=== PATIENT | male | born 2005 | race Two or more races ===

== ENCOUNTER 2024-09-13 09:35 | Day surgery (SDC) | payer MEDICAID, SELFPAY ==
--- NOTE | 2024-09-09 09:27 | ESHP_ITS ---
RE: NATALY ADDISON : 2005 DATE OF ADMISSION: 09/08/2024 HISTORY OF PRESENT ILLNESS: The patient has right spermatocele. He is scheduled to have right-sided spermatocelectomy. The patient has a cyst in his scrotum for about 4 months. Previous surgeries none. He has no children. No history of diabetes mellitus. No history of hypertension. ALLERGIES: NONE KNOWN. MEDICATIONS: None. CLINICAL EXAMINATION: HEENT: Normal. NECK: Supple. LUNGS: Clear. CARDIOVASCULAR: Heart sounds are normal. ABDOMEN: Soft without any organomegaly. No guarding. No rigidity. EXTREMITIES: Normal. GENITOURINARY: Phallus is normal. Testes are down in scrotum. The patient does have right-sided 2-3 cm spermatocele. The patient wishes to have it removed because it is bothering him. PLAN: Right spermatocelectomy. Planned procedure, risks and complications have been discussed with the patient. The patient has understood them and agreed to proceed. DT: 12:37:51 TT: 15:42:00 Ref: [id number] - TID: [id number]
[2024-09-09 10:58] VITALS: BMI 28.2
[2024-09-09 12:20] LABS: Basophils % (Auto) 1 % (0-2.5); Eosinophils % (Auto) 1 % (0-10); Hematocrit 45.9 % (41.0-53.0); Hemoglobin 16.2 g/dL (13.5-16.0); Immature Granulocytes % (Auto) 0 % (0-0); Immature Granulocytes Auto 0.01 Thou/mm3 (0.00-0.00); Lymphocytes # (Auto) 2.4 Thou/mm3 (1.0-5.0); Lymphocytes % (Auto) 36 % (10-50); Mean Corpuscular HGB Conc 35.3 g/dl (31.0-37.0); Mean Corpuscular Hemoglobin 29.3 pg (25.0-35.0); Mean Corpuscular Volume 83 fL (80-100); Monocytes # (Auto) 0.5 Thou/mm3 (0.0-0.8); Monocytes % (Auto) 7 % (0-12); Neutrophils # (Auto) 3.8 Thou/mm3 (1.8-7.7); Neutrophils % (Auto) 56 % (37-80); Nucleated Red Blood Cell % 0 /100 WBC (0); Platelet Count 243 Thou/mm3 (140-440); RDW Standard Deviation 37.9 fL (35.1-43.9); Red Blood Count 5.52 Miln/mm3 (4.50-5.90); White Blood Count 6.8 Thou/mm3 (4.5-11.0)
[2024-09-09 12:28] LABS: Anion Gap 8 (7-16); BUN/Creatinine Ratio 11 Ratio (12-20); Blood Urea Nitrogen 12 mg/dL (9-23); Calcium 10.4 mg/dL (8.3-10.6); Carbon Dioxide 29.1 mMol/L (20.0-31.0); Chloride 105 mMol/L (98-107); Creatinine (Component) 1.1 mg/dL (0.6-1.3); Glucose 102 mg/dL (74-106); Osmolality,Calculated 282 (275-295); Potassium 4.3 mMol/L (3.4-5.1); Sodium 142 mMol/L (136-145); eGFR > 60 See Note
[2024-09-13] VITALS (8 sets, daily range): BP systolic 93–117; BP diastolic 51–92; PULSE 56–80; RESP 14–17; TEMP 36.1–36.4; O2SAT 98–100; BMI 28.4
[2024-09-13] MEDS: RINGERS LACTATED 1000 ML 1,000 ML 20 ML IV (10:06)
--- NOTE | 2024-09-13 12:46 | SUR.PHASEI ---
1246 Patient arrived resting comfortably in [facility], on oxygen 8L via oxy mask with an oral airway in place, breathing unlabored, vital signs stable, dressing intact to groin area; sutures, gauze, fluffs, scrotal support, no bleeding noted, lung sounds clear upon auscultation, bilateral radial pulses present when palpated, report received from Paresh GUERRERO and Mylene ONEIL/ Jovita SRNA
--- NOTE | 2024-09-13 14:04 | SUR.PHASEII ---
1404 Patient meets discharge criteria from recovery, awake and alert, breathing unlabored, vital signs stable, denies pain, dressing intact; no bleeding noted, patient assisted with dressing into his clothing by this comic book writer, patient ate two jello and drinking apple juice, tolerating well, denies nausea, discharge instructions given to patient and patients brother, brother signed discharge instructions. Patient given all his belongings prior to discharge, transported via wheelchair and left in a private vehicle.
--- NOTE | 2024-09-13 16:28 | ESOP_ITS ---
RE: NATALY ADDISON : 2005 DATE OF OPERATION: 09/13/2024 PREOPERATIVE DIAGNOSES: Right epididymal cyst and spermatocele. POSTOPERATIVE DIAGNOSES: Right epididymal cyst and spermatocele with prominent appendix of the left testicular appendix. PROCEDURES PERFORMED: Excision of the left spermatocele and excision and fulguration of the prominent appendix of the left testis. ANESTHESIA: General. INDICATION: The patient is a 18-year-old male, who was seen in the office. He has a right-sided scrotal swelling of about 2 cm in size above the right testis that has been bothering him. The patient was seen in the office. Because of his symptoms, he is now scheduled to have right spermatocelectomy. Planned procedure, risks and complications have been discussed with patient. The patient understood them and agreed to proceed. DESCRIPTION OF PROCEDURE: After the patient was brought to the operating table under adequate general anesthesia in supine position, parts were prepped and draped in the usual fashion. Right vertical scrotal incision was then made approximately about 3 cm long. Skin and subcutaneous tissues were incised. The right testis was delivered out of the incision. The patient had a prominent appendix of the right testis and had right spermatocele or epididymal cyst above the right testis, which was about 2 cm long. This was carefully excised and was sent for examination. The prominent appendix of the right testis was excised and fulgurated. Complete hemostasis was obtained. The testis was put back into the right-sided hemiscrotum and the wound was closed in layers using 3-0 chromic catgut sutures. Local anesthetic was injected at the site of the incision. Sterile dressing was then applied. The patient was then transferred to the recovery room in a satisfactory condition having tolerated the entire procedure well. Sponge count and needle count at the end of the procedure was found to be correct. Estimated blood loss was approximately 2-3 mL. DT: 12:52:58 TT: 16:27:00 Ref: [id number] - TID: [id number]
== END 2024-09-13 14:04 | disposition home or self-care (01) ==
PROVIDERS: PCP Family Medicine; Referring Provider Surgery; Visit Provider Surgery
PROC: (CPT 54840; principal; 2024-09-13 11:45)
DX: N43.41 Spermatocele of epididymis, single (principal); N50.3 Cyst of epididymis
CPT/HCPCS: 54840; 36415; 80048; 85025; A4217; A4649; J0131; J0690; J1100; J1885; J2250; J2405; J2704; J3010; J3490; J7120; J0665

== ENCOUNTER 2024-09-16 17:03 | Emergency (ER) | payer MEDICAID, SELFPAY ==
[2024-09-16 17:05] VITALS: BMI 28.2
[2024-09-16 17:37] VITALS: BP 107/76; PULSE 94; RESP 18; TEMP 37.8; O2SAT 99
--- NOTE | 2024-09-16 17:42 | PD.EDRME ---
Rapid Medical Screening Exam RME Arrival date/time: 09/16/24 17:03 This is a 18-year-old male presents emergency department complaints of a headache, fever recently had a testicular mass surgery 3 days ago. I have greeted and performed a focused initial assessment of this patient. Initial appropriate labs ordered at this time. A comprehensive ED assessment and evaluation of the patient and analysis of all test and completion of medical decision making process will be conducted by additional ED provider. Chief Complaint: Flu Like Symptoms Time Seen by Provider: 09/16/24 17:41 Vital signs: Vital Signs Temperature 100.1 F 09/16/24 17:37 Pulse Rate 94 09/16/24 17:37 Respiratory Rate 18 09/16/24 17:37 Blood Pressure 107/76 09/16/24 17:37 Pulse Oximetry (%) 99 09/16/24 17:37 Oxygen Delivery Method Room Air 09/16/24 17:37
[2024-09-16 18:11] LABS: Collection Type, Urine Clean Catch
[2024-09-16 18:12] LABS: Lactate (Lactic Acid) 1.3 mMol/L (0.4-2.0)
[2024-09-16 18:23] LABS: Basophils # (Auto) 0.1 Thou/mm3 (0.0-0.2); Basophils % (Auto) 1 % (0-2.5); Eosinophils % (Auto) 0 % (0-10); Hematocrit 45.4 % (41.0-53.0); Hemoglobin 16.2 g/dL (13.5-16.0); Immature Granulocytes % (Auto) 0 % (0-0); Immature Granulocytes Auto 0.04 Thou/mm3 (0.00-0.00); Lymphocytes # (Auto) 1.5 Thou/mm3 (1.0-5.0); Lymphocytes % (Auto) 16 % (10-50); Mean Corpuscular HGB Conc 35.7 g/dl (31.0-37.0); Mean Corpuscular Hemoglobin 29.8 pg (25.0-35.0); Mean Corpuscular Volume 84 fL (80-100); Monocytes # (Auto) 0.6 Thou/mm3 (0.0-0.8); Monocytes % (Auto) 6 % (0-12); Neutrophils # (Auto) 7.7 Thou/mm3 (1.8-7.7); Neutrophils % (Auto) 78 % (37-80); Nucleated Red Blood Cell % 0 /100 WBC (0); Platelet Count 211 Thou/mm3 (140-440); RDW Standard Deviation 37.3 fL (35.1-43.9); Red Blood Count 5.44 Miln/mm3 (4.50-5.90); White Blood Count 9.9 Thou/mm3 (4.5-11.0)
[2024-09-16 18:29] LABS: Bilirubin,Urine Negative (Negative); Blood,Urine Negative (Negative); Clarity,Urine Clear (Clear/Hazy); Color,Urine Lt-Yellow (Lt Yel-Yel); Glucose, Urine Negative (Negative); Ketones,Urine 2+ (Negative); Leukocyte Esterase,Urine Negative (Negative); Nitrite,Urine Negative (Negative); Protein,Urine Trace (Neg - Trace); RBC,Urine 1 /hpf (0-3); Specific Gravity,Urine 1.023 (1.001-1.035); Squamous Epithelial Cell,Urine < 1 /hpf (0-5); WBC,Urine < 1 /hpf (0-5)
[2024-09-16 18:40] LABS: Carbon Dioxide 28.5 mMol/L (20.0-31.0); Chloride 100 mMol/L (98-107); Sodium 141 mMol/L (136-145)
[2024-09-16 18:41] LABS: Alanine Aminotransferase 14 U/L (10-49); Albumin/Globulin Ratio 1.8 (1.2-2.2); Alkaline Phosphatase 80 U/L (46-116); Anion Gap 13 (7-16); Aspartate Amino Transferase 13 U/L (0-34); BUN/Creatinine Ratio 12 Ratio (12-20); Bilirubin,Total 0.7 mg/dL (0.3-1.2); Blood Urea Nitrogen 12 mg/dL (9-23); Calcium 10.3 mg/dL (8.3-10.6); Calcium (Corrected) 10.3 mg/dL (8.5-10.1); Estimated Creatinine Clearance 117.7 mL/min (>60); Globulin 2.8 gm/dL (2.3-3.5); Glucose 97 mg/dL (74-106); Lipase 34 U/L (12-53); Osmolality,Calculated 280 (275-295); Total Protein 7.8 gm/dL (5.7-8.2); eGFR > 60 See Note
[2024-09-16 18:43] LABS: Procalcitonin < 0.04 ng/ml (0.0-0.49)
[2024-09-16 21:29] VITALS: BP 117/79; PULSE 73; RESP 18; TEMP 37.1; O2SAT 95
--- NOTE | 2024-09-16 21:30 | PC.NURSE ---
Ambulated to RM #7 with c/o headache, N/V, mild fever. Recently had surgery in rt testicle to remove a mass per pt. Denies any redness or drainage from surgical site. Mom at bedside.
[2024-09-16 21:40] VITALS: BP 113/76; RESP 20; TEMP 37.3; O2SAT 100
--- NOTE | 2024-09-16 21:43 | EDNOTE_ITS ---
<Statement entered by Lisa Marina MD - 09/17/24 18:36> As co-signing physician, I was present and available for consult prn. I concur with the plan and care as documented by the midlevel provider. ED General RME/HPI General Chief complaint: Flu Like Symptoms Stated complaint: VOMITING, COUGH, LETHARGY Time Seen by Provider: 09/16/24 17:41 Arrival date/time: 09/16/24 17:03 RME / HPI RME / HPI narrative: 18-year-old male patient was brought in by family for evaluation regarding headache and fever. Onset of symptoms since early today patient woke up with headache, fever, nausea, vomiting, cannot take anything down. Patient had a testicular mass removal surgery by Dr. Lou 3 days ago. Patient denies any cough denies any abdominal pain denies any testicular pain. Denies any other complaints no medications taken prior to arrival. Related Data Previous Rx's ?Medication ?Instructions ?Recorded ciprofloxacin HCl 500 mg tablet 500 mg PO BID #14 tabs 09/13/24 (Cipro) hydrocodone 5 mg-acetaminophen 325 1 tab PO Q6H PRN pa in #30 tabs 09/13/24 mg tablet Allergies Allergy/AdvReac Type Severity Reaction Status Date / Time No Known Allergies Allergy Verified 09/16/24 17:08 Review of Systems Review of Systems Narrative Review of Systems: Review of system reviewed and within normal limits except mentioned in HPI ED Exam Narrative Physical exam: VITAL SIGNS: Reviewed. GENERAL APPEARANCE: Alert and interactive, follows commands, no acute distress, HEAD AND FACE: Non-traumatic. ENT: PERRL, pink conjunctivitis, eyelid no trauma, Mucous membrane moist. NECK: Supple, nontender, no nuchal rigidity. CHEST: No tenderness, no crepitus, no paradoxical movement, no retractions. LUNGS: Clear, well ventilated, symmetric, no rales, no wheezing, no ronchi, no stridor, good breath sounds bilaterally. HEART: Regular rate, regular rhythm, no murmur, no gallops. ABDOMEN: Soft, positive bowel sounds, nondistended, no guarding, nontender, no rebound, no masses, RECTAL: Deferred. GENITAL: Surgical wound well coaptated with sutures, testicle, no swelling no drainage no bleeding no redness nontender NEUROLOGICAL: Gross motor function intact sensory function intact, Appropriate for age. MUSCULOSKELETAL: low back nontender, full range of motion. EXTREMITIES: Nontender, full range of motion. SKIN: Color pink, dry, no rash, no lacerations, no abrasions, no contusions. LYMPHATICS: Deferred. Course Quality Measures none Orders Category Date Time Status Bedside Influenza A&B Antigen Test NOW Care 09/16/24 17:42 Completed IV [Insert IV] NOW Care 09/16/24 21:56 Active Blood Culture (Lab) Stat Lab 09/16/24 17:56 Received CBC Stat Lab 09/16/24 17:50 Completed Comprehensive Metabolic Panel Stat Lab 09/16/24 17:50 Completed Lactic Acid [Lactate (Lactic Acid)] Stat Lab 09/16/24 17:50 Completed Lipase Stat Lab 09/16/24 17:50 Completed Procalcitonin Stat Lab 09/16/24 17:50 Completed Urinalysis Stat Lab 09/16/24 18:00 Completed Famotidine Inj [Pepcid Inj] Med 09/16/24 21:40 Discontinued 20 mg IVP X1 ONE Ketorolac Inj [Toradol Inj] Med 09/16/24 21:40 Discontinued 30 mg IVP X1 ONE Ondansetron Inj [Zofran Inj] Med 09/16/24 21:40 Discontinued 4 mg IV X1 ONE Sodium Chloride 0.9% 1000 ml [Ns] 1,000 ml Med 09/16/24 21:42 Discontinued IV 999 mls/hr Vital Signs Vital signs: Vital Signs Temperature 100.1 F 09/16/24 17:37 Pulse Rate 94 09/16/24 17:37 Respiratory Rate 18 09/16/24 17:37 Blood Pressure 107/76 09/16/24 17:37 Pulse Oximetry (%) 99 09/16/24 17:37 Oxygen Delivery Method Room Air 09/16/24 17:37 [facility] Patient data External records reviewed:: None Clinical information provided by:: none Social determinants that could affect healthcare access:: none Patient has the following chronic illnesses:: None How is presenting disease/condition affected by chronic disease/condition?: no chronic disease Evaluation data The following diagnostics were reviewed and interpreted by me:: lab results Lab and/or radiology exams considered but not ordered:: None Interpretation Summary: See results in the MDM Medications Medications considered but not ordered:: None Medication administrations:: Medication Administration History Discontinued Medications Famotidine (Famotidine Inj 10 Mg/Ml Vial 2 Ml) 20 mg IVP X1 ONE Stop: 09/16/24 21:41 Last Admin: 09/16/24 22:07 Dose: 20 mg Documented By: GET Sodium Chloride (Ns) 1,000 mls @ 999 mls/hr IV .Q1H1M ONE Stop: 09/16/24 22:42 Last Admin: 09/16/24 22:01 Dose: 999 mls/hr Documented By: GET Ketorolac Tromethamine (Ketorolac Inj 30 Mg/Ml Vial) 30 mg IVP X1 ONE Stop: 09/16/24 21:41 Last Admin: 09/16/24 22:03 Dose: 30 mg Documented By: GET Ondansetron HCl (Ondansetron Inj 2 Mg/Ml Inj 2 Ml) 4 mg IV X1 ONE; Protocol Stop: 09/16/24 21:41 Last Admin: 09/16/24 22:05 Dose: 4 mg Documented By: GET Toradol Zofran IV fluids and Pepcid Consultations Consultation(s) initiated? (list below): No Diagnosis Differential Diagnosis ED Complaint MDM: Fever, URI, cough Most likely diagnosis given after review of the tests above:: Fever, Admission Indicated Admission indicated?: not indicated Explain why admission is indicated or not indicated:: Stable Admission Request Was there a request for admission?: No Disposition Plan Disposition Plan: Discharge Discharge Attestation Discharge Attestation: The patient and all family members were given an opportunity to ask questions and understood the discharge instructions. Discharge instructions specifically effects, indications for sooner follow up or return to the emergency department, and the expected course of current diagnosis. Patient condition: Stable Medical Decision Making MDM Narrative MDM Narrative: 18-year-old male patient was brought in by family for evaluation regarding headache and fever. Onset of symptoms since early today patient woke up with headache, fever, nausea, vomiting, cannot take anything down. Patient had a testicular mass removal surgery by Dr. Lou 3 days ago. Patient denies any cough denies any abdominal pain denies any testicular pain. Denies any other complaints no medications taken prior to arrival. Patient's workup all came back unremarkable. Patient received IV fluids, Pepcid, and Zofran and Toradol with complete resolution of symptoms. No recurrence of fever noted in the ED. Patient told me that he felt better. Differential Diagnosis Differential Diagnosis: Fever, URI, cough Lab Data 09/16/24 17:50 09/16/24 17:50 Labs: Lab Results 09/16/24 09/16/24 Range/Units 17:50 18:00 WBC 9.9 (4.5-11.0) Thou/mm3 RBC 5.44 (4.50-5.90) Miln/mm3 Hgb 16.2 H (13.5-16.0) g/dL Hct 45.4 (41.0-53.0) % MCV 84 (80-100) fL MCH 29.8 (25.0-35.0) pg MCHC 35.7 (31.0-37.0) g/dl RDW Std Deviation 37.3 (35.1-43.9) fL Plt Count 211 D (140-440) Thou/mm3 Neut % (Auto) 78 (37-80) % Lymph % (Auto) 16 (10-50) % Douglas % (Auto) 6 (0-12) % Eos % (Auto) 0 (0-10) % Baso % (Auto) 1 (0-2.5) % Neut # (Auto) 7.7 (1.8-7.7) Thou/mm3 Lymph # (Auto) 1.5 (1.0-5.0) Thou/mm3 Douglas # (Auto) 0.6 (0.0-0.8) Thou/mm3 Eos # (Auto) 0.0 (0.0-0.5) Thou/mm3 Baso # (Auto) 0.1 (0.0-0.2) Thou/mm3 Immature Gran # (Auto) 0.04 H (0.00-0.00) Thou/mm3 Absolute Nucleated RBC 0.00 (0.00-0.00) Thou/mm3 Immature Gran % 0 (0-0) % Nucleated RBC % 0 (0) /100 WBC Sodium 141 (136-145) mMol/L Potassium 4.0 (3.4-5.1) mMol/L Chloride 100 (98-107) mMol/L Carbon Dioxide 28.5 (20.0-31.0) mMol/L Anion Gap 13 (7-16) BUN 12 (9-23) mg/dL Creatinine 1.0 (0.6-1.3) mg/dL Estim Creat Clear Calc 117.7 (>60) mL/min eGFR > 60 (60 - ) See Note BUN/Creatinine Ratio 12 (12-20) Ratio Glucose 97 (74-106) mg/dL Calculated Osmolality 280 (275-295) Lactic Acid 1.3 (0.4-2.0) mMol/L Calcium 10.3 (8.3-10.6) mg/dL Corrected Calcium 10.3 H (8.5-10.1) mg/dL Total Bilirubin 0.7 (0.3-1.2) mg/dL AST 13 (0-34) U/L ALT 14 (10-49) U/L Alkaline Phosphatase 80 (46-116) U/L Total Protein 7.8 (5.7-8.2) gm/dL Albumin 5.0 (3.5-5.0) gm/dL Globulin 2.8 (2.3-3.5) gm/dL Albumin/Globulin Ratio 1.8 (1.2-2.2) Lipase 34 (12-53) U/L Procalcitonin < 0.04 (0.0-0.49) ng/ml Ur Collection Type Clean Catch Urine Color Lt-Yellow (Lt Yel-Yel) Urine Clarity Clear (Clear/Hazy) Urine pH 7.0 (5.0-7.0) Ur Specific [place] 1.023 (1.001-1.035) Urine Protein Trace (Neg - Trace) Urine Glucose (UA) Negative (Negative) Urine Ketones 2+ A (Negative) Urine Blood Negative (Negative) Urine Nitrite Negative (Negative) Urine Bilirubin Negative (Negative) Urine Urobilinogen (Auto) 2.0 (0.0-1.0) mg/dL Ur Leukocyte Esterase Negative (Negative) Urine RBC 1 (0-3) /hpf Urine WBC < 1 (0-5) /hpf Ur Squamous Epith Cells < 1 (0-5) /hpf Urine Bacteria None (None) Discharge Plan Plan Patient Disposition: HOME (Self Care) Disposition Comment: Stable Prescriptions/Referrals Prescriptions/Med Rec: No Action hydrocodone-acetaminophen 5-325 mg tablet 1 tab PO Q6H MDD 4 PRN (Reason: pain) Qty: 30 0RF ciprofloxacin HCl [Cipro] 500 mg tablet 500 mg PO BID Qty: 14 0RF Referrals: Alison [facility] CHARACTER ACTOR,Gabby Brody CHARACTER ACTOR [Primary Care Provider] - In 1 week Problem List Clinical Impression: Fever Patient/Caregiver Discharge Instructions Discharge Activity: activity as tolerated Education Materials: ED FUO Adult Additional Instructions: Thank you for the opportunity for serving you today. You are stable for discharged . You are advised to: Follow-up with your PCP in 1 to 2 days Return to ED for worsening of symptoms Increase oral fluids Take [id number] Tylenol or Motrin as needed for fever Print Language: Sinhala Stand Alone Forms: Brielle Award Info., Patient Portal Info Letter PA/ONLINE JOURNALIST Supervising Physician PA/ONLINE JOURNALIST Supervising Physician: MD Frederick
--- NOTE | 2024-09-16 21:45 | PC.NURSE ---
Petey PRESSURE TESTER OPERATOR in room assessing Rt scrotol incision. Incision approximated, sutures intact, with no signs of infection noted.
[2024-09-16] MEDS: SODIUM CHLORIDE 0.9% 1000 ML 1,000 ML 999 ML IV (22:01)
[2024-09-16] MEDS: KETOROLAC INJ 30 MG/ML VIAL IVP (22:03)
[2024-09-16] MEDS: ONDANSETRON INJ 2 MG/ML INJ 2 ML 4 MG IV (22:05)
[2024-09-16] MEDS: FAMOTIDINE INJ 10 MG/ML VIAL 2 ML 20 MG IVP (22:07)
[2024-09-16 23:00] VITALS: BP 109/72; PULSE 72; RESP 18; TEMP 37.2; O2SAT 99
[2024-09-16 23:08] VITALS: TEMP 37.2
[2024-09-16 23:47] VITALS: BP 109/67; PULSE 78; RESP 18; TEMP 37.2; O2SAT 99
== END 2024-09-16 23:51 | disposition home or self-care (01) ==
PROVIDERS: Nurse Practitioner Primary Care; Emergency Provider Emergency Medicine; PCP Nurse Practitioner Family
DX: R50.9 Fever, unspecified (principal); R11.2 Nausea with vomiting, unspecified; R51.9 Headache, unspecified
CPT/HCPCS: 36415; 80053; 81001; 83605; 83690; 84145; 85025; 87040; 87400; 87811; 96361; 96374; 96375; 99284; J1885; J2405; J3490; J7030

== ENCOUNTER 2024-10-22 04:54 | Emergency (ER) | payer MEDICAID, SELFPAY ==
[2024-10-22 04:55] VITALS: BMI 28.2
[2024-10-22 05:00] VITALS: BP 113/75; PULSE 85; RESP 18; TEMP 36.7; O2SAT 98
--- NOTE | 2024-10-22 05:13 | XR_ITS ---
EXAMINATION: Ankle, right 3 views . Technique: Ankle AP, oblique, lateral 3 views Date and time of exam: October 22, 2024 0528 hours INDICATIONS: Injured ankle today, ankle pain. FINDINGS: Prominent lateral malleolar soft tissue swelling No acute fracture No ankle dislocation IMPRESSION: No acute fracture
--- NOTE | 2024-10-22 05:14 | PD.EDRME ---
Rapid Medical Screening Exam E Arrival date/time: 10/22/24 04:54 19M with no significant PMH presents to ED with R ankle pain after he twisted it. Chief Complaint: Ankle/Foot Injury Vital signs: Vital Signs Temperature 98.0 F 10/22/24 05:00 Pulse Rate 85 10/22/24 05:00 Respiratory Rate 18 10/22/24 05:00 Blood Pressure 113/75 10/22/24 05:00 Pulse Oximetry (%) 98 10/22/24 05:00 Oxygen Delivery Method Room Air 10/22/24 05:00
--- NOTE | 2024-10-22 06:06 | EDNOTE_ITS ---
<Statement entered by Lisa Marian MD - 10/22/24 17:33> As co-signing physician, I was present and available for consult prn. I concur with the plan and care as documented by the midlevel provider. ED General RME/HPI General Chief complaint: Ankle/Foot Injury Stated complaint: TWISTED RIGHT ANKLE Time Seen by Provider: 10/22/24 06:06 Arrival date/time: 10/22/24 04:54 CC: Right ankle pain HPI patient twisted ankle after going down some steps approximately 12 hours ago. Patient denies any numbness or tingling in the tip of the foot, positive swelling to the side of the ankle. Denies fall. Localized pain 3-4 and a 10 scale. No OTC medicines taken. RME / HPI RME / HPI narrative: 10/22/24 04:54 19M with no significant PMH presents to ED with R ankle pain after he twisted it. Related Data Previous Rx's ?Medication ?Instructions ?Recorded ciprofloxacin HCl 500 mg tablet 500 mg PO BID #14 tabs 09/13/24 (Cipro) hydrocodone 5 mg-acetaminophen 325 1 tab PO Q6H PRN pa in #30 tabs 09/13/24 mg tablet Allergies Allergy/AdvReac Type Severity Reaction Status Date / Time No Known Allergies Allergy Verified 09/16/24 17:08 Review of Systems Review of Systems Narrative Review of Systems: GEN: No fever, no chills, no weight loss EYES: No discharge, no visual changes, no pain HEENT: No ear pain, no congestion, no sore throat PULM: No shortness of breath, no cough, no congestion CV: No chest pain, no dyspnea on exertion, no palpitations GI: No nausea, no vomiting, no diarrhea, no pain, no constipation : No frequency, no urgency, no dysuria MUSC/SKEL: + joint pain, no back pain SKIN: No rash PSYCH: No hallucinations, no depression HEME/LYMPH: No easy bleeding or bruising tendencies NEURO: No weakness, no headache Past Medical History Past Medical History NEUROLOGIC: Positive Neurological Disorders and Seizures CARDIAC: Negative Cardiac Disorders or Congestive Heart Failure RESPIRATORY: Negative Chronic Obstructive Pulmonary Disease (COPD) GASTROINTESTINAL: Negative Gastrointestinal Disorders or Hepatitis GENITOURINARY: Positive Genitourinary Disorders (right testicle swollen, was told it's a cyst); Negative Renal Disease MUSCULOSKELETAL: Positive Fractures (right hand); Negative Musculoskeletal Disorders ENDOCRINE: Negative Endocrine Disorders, Diabetes Mellitus Type 1 or Diabetes Mellitus Type 2 HEMATOLOGIC: Negative Blood Disorders OTHER HISTORY: Negative Hospitalization, Autoimmune Disease, Shingles, Blood Transfusions, Blood Transfusion Reaction, Anesthesia Reactions or Cancer Family History FAMILY HISTORY: Negative Family Psychiatric Problems, Family Respiratory Disorders, Family Cardiac Disorders, Family Gastrointestinal Problems, Family Cancer, Family Surgery or Family Anesthesia Reaction Social History SMOKING STATUS: Never smoker SUBSTANCE USE: does not use ED Exam Narrative Physical exam: [General: Obese not in cot no acute distress Head normocephalic HEENT: Within acceptable limits Neck is supple nontender Chest equal chest rise nontender to palpation Respiratory: Clear to auscultation no wheezes crackles or rubs CV: Rate rhythm is regular no murmurs rubs or clicks Back: No CVA tenderness no spinous process tenderness from cervical spine thoracic and lumbar spine Skin: Intact no petechiae rash induration ulceration or crepitus Extremities: Right ankle, lateral malleolus edema with tenderness to palpation no medial malleolus tenderness with palpation cap refill less than 2 seconds neurosensory intact decreased range of motion of the ankle secondary to pain. Moving all other extremities against resistance cap refill less than 2 seconds neurosensory intact Neuro: Awake alert oriented x3 Glascow coma 15 no focal deficits] Course Quality Measures none Orders Category Date Time Status Crutches .NOW Care 10/22/24 05:14 Active XR ankle comp RT min 3V Stat Exams 10/22/24 05:13 Taken Vital Signs Vital signs: Vital Signs Temperature 98.0 F 10/22/24 05:00 Pulse Rate 85 10/22/24 05:00 Respiratory Rate 18 10/22/24 05:00 Blood Pressure 113/75 10/22/24 05:00 Pulse Oximetry (%) 98 10/22/24 05:00 Oxygen Delivery Method Room Air 10/22/24 05:00 [facility] Patient data External records reviewed:: [facility] previous records Clinical information provided by:: patient Social determinants that could affect healthcare access:: none Patient has the following chronic illnesses:: None How is presenting disease/condition affected by chronic disease/condition?: uneffected by Evaluation data The following diagnostics were reviewed and interpreted by me:: radiology exam(s) Lab and/or radiology exams considered but not ordered:: Ankle x-ray shows no acute fracture malalignment or dislocation as interpreted by me Interpretation Summary: Ankle sprain Medications Medications considered but not ordered:: None Medication administrations:: None Consultations Consultation(s) initiated? (list below): No Diagnosis Differential Diagnosis ED Complaint MDM: Sprain strain fracture of the ankle Most likely diagnosis given after review of the tests above:: Ankle sprain Admission Indicated Admission indicated?: not indicated Explain why admission is indicated or not indicated:: Stable for outpatient follow-up Admission Request Was there a request for admission?: No Disposition Plan Disposition Plan: Discharge Discharge Attestation Discharge Attestation: The patient and all family members were given an opportunity to ask questions and understood the discharge instructions. Discharge instructions specifically effects, indications for sooner follow up or return to the emergency department, and the expected course of current diagnosis. Patient condition: Stable Medical Decision Making Differential Diagnosis Differential Diagnosis: Sprain strain fracture of the ankle Discharge Plan Plan Patient Disposition: HOME (Self Care) Prescriptions/Referrals Prescriptions/Med Rec: No Action hydrocodone-acetaminophen 5-325 mg tablet 1 tab PO Q6H MDD 4 PRN (Reason: pain) Qty: 30 0RF ciprofloxacin HCl [Cipro] 500 mg tablet 500 mg PO BID Qty: 14 0RF Referrals: Demarco Pedro MD [Primary Care Provider] - In 1 week Problem List Clinical Impression: Ankle sprain Patient/Caregiver Discharge Instructions Education Materials: ED Ankle Sprain (Adult) Print Language: Mexican Stand Alone Forms: Brielle Award Info., Work/School Release, Patient Portal Info Letter TIARA/AMANDA Supervising Physician TIARA/AMANDA Supervising Physician: Brandon Duckworth ENP
== END 2024-10-22 06:17 | disposition home or self-care (01) ==
PROVIDERS: Emergency Provider Emergency Medicine; PCP Family Medicine
DX: S93.401A Sprain of unspecified ligament of right ankle, initial encounter (principal); X50.1XXA Overexertion from prolonged static or awkward postures, initial encounter
CPT/HCPCS: 73610; 99283